=== PATIENT | female | born 1945 | race Caucasian/White ===

== ENCOUNTER 2018-03-23 00:32 | Inpatient (IN) ==
[2018-03-23] MEDS ORDERED: Ipratropium/Albuterol Neb 3 ML IH ONE (00:51)
[2018-03-23] MEDS ORDERED: methylPREDNISolone 125 MG/2 ML VIAL IVP ONE (00:52)
--- NOTE | 2018-03-23 00:59 | Emergency Department Note ---
Disposition Clinical Impression: COPD exacerbation Disposition: Admitted As Inpatient Condition: Good Time of Disposition: 05:03 SOB HPI - General Chief Complaint: ED Shortness of Breath/Dyspnea Stated Complaint: sob Time Seen by Provider: 03/23/18 00:37 Source: patient, EMS Limitations: no limitations Nursing Notes Reviewed: Yes Vital Signs Reviewed: Yes - History of Present Illness Patient is a 72-year-old female with past medical history of COPD. She presents today due to cough, shortness of breath. She states that she has had cough and shortness of breath above her baseline for the past 2-3 days. She was seen in urgent care this morning and had chest x-ray that she reports was negative for any pneumonia. She was sent home with prednisone and an inhaler. She states that she has been using her inhaler at home without any relief. She did not start her prednisone because she thought that it would work better if she taken the morning. She admits to productive cough above her baseline. She denies taking any daily steroid inhaler such as Symbicort or Advair. She admits to some mild chest discomfort when coughing mainly on the left side of her chest. Denies any radiation of this pain, describes as sharp. No other history of leg swelling, calf pain, long car rides, recent surgeries, any history of DVT or PE. She denies any fevers, nausea, vomiting, abdominal pain. She has not had to be on BIPAP in the past. - Related Data Home Medications Medication Instructions Recorded Confirmed Ascorbate Calcium [Vitamin C] 500 mg PO DAILY 03/23/18 03/23/18 Aspirin [Adult Aspirin] 81 mg PO DAILY 03/23/18 03/23/18 Benzonatate [Tessalon] 200 mg PO TID 03/23/18 03/23/18 Guaifenesin [Mucinex] 100 mg PO DAILY 03/23/18 03/23/18 Ipratropium/Albuterol Neb [Duoneb] 3 ml IH Q6HR 03/23/18 03/23/18 Loratadine [Claritin] 10 mg PO DAILY 03/23/18 03/23/18 Nebulizer [Aeroeclipse] 1 each MC PRN PRN MDD 4 03/23/18 03/23/18 Zithromax 250 mg PO DAILY 03/23/18 03/23/18 predniSONE [PredniSONE] 40 mg PO DAILY 03/23/18 03/23/18 Allergies Allergy/AdvReac Type Severity Reaction Status Date / Time ibuprofen Allergy Nausea Verified 03/23/18 01:26 All systems ED: reviewed and negative except as stated. Constitutional: Denies: fever Cardiovascular: Reports: chest pain Respiratory: Reports: cough, dyspnea, wheezes Gastrointestinal: Denies: abdominal pain, nausea, vomiting, diarrhea Genitourinary: Denies: urgency, dysuria Neurological: Denies: headache, weakness, numbness, paresthesias Past Medical History - Past Medical History Attestation: Yes The following information was validated with the patient. Source: patient Medical history: Reports: COPD, CVA Surgical history: Reports: OMAR/BSO - Social History Smoking Status: Current every day smoker Smokeless Tobacco Status: No Alcohol use: Reports: none Drug use: Reports: none Physical Exam - General Limitations: no limitations General appearance: alert - Head Head exam: atraumatic, normocephalic, normal inspection - Eye Eye exam: Present: normal appearance, PERRL, EOMI - ENT ENT exam: normal exam, normal oropharynx, mucous membranes moist - Neck Neck exam: Present: normal inspection, full ROM, trachea midline - Chest Chest inspection: Present: normal inspection, symmetric chest wall rise - Respiratory Respiratory exam: Present: respiratory distress (moderate), wheezes (moderate wheeze throughout all lung molina), accessory muscle use (moderate). Absent: stridor - Cardiovascular Cardiovascular exam: Present: regular rate, normal rhythm, normal heart sounds - Abdominal Exam Abdominal exam: Present: soft, Non-Tender. Absent: tenderness, distention, guarding, rebound, rigidity - Extremities Exam Extremities exam: Present: normal inspection, full ROM. Absent: tenderness, pedal edema - Neurological Exam Neurological exam: Present: alert, oriented X3 - Psychiatric Psychiatric exam: Present: normal affect, normal mood - Skin Skin exam: Present: warm, dry, intact, normal color Course Course Narrative: Patient was satting around 95-99% on 2-4 L nasal cannula. However, she had significant work of breathing. Patient is placed on BiPAP. Initial VBG showed pH of 7.39, CO2 in the 50s. O2 was high. She was given DuoNeb 3, Solu- Medrol. CTA was ordered to assess for PE due to patient's complaint of pleuritic type chest pain. Negative for PE but did show possible branching opacities that could be pneumonia. Patient was started on vancomycin and Zosyn. Throughout her stay, she does have improvement of her work of breathing while on BiPAP. Patient was accepted for admission by Dr. Morton. Chest CTA 03/23/18 00:51 IMPRESSION: 1. No evidence of pulmonary embolism 2. Moderate to severe centrilobular emphysema 3. Branching opacities in the left lung may reflect mild pneumonia or infectious airway disease 4. Small amount of filling defects within the small airways of left lower lobe. This could reflect mucus or debris. Aspiration is not excluded D/ / Alan Sam MD / Alan Sam MD Interpreting Provider: Alan Sam MD Vital Signs Temperature 98.3 F 03/23/18 00:35 Pulse Rate 116 03/23/18 00:35 Respiratory Rate 24 03/23/18 00:35 Blood Pressure 141/78 03/23/18 00:35 O2 Sat by Pulse Oximetry 100 03/23/18 00:35 Temperature 98.3 F 03/23/18 00:35 Pulse Rate 116 03/23/18 01:15 Respiratory Rate 22 03/23/18 02:05 Blood Pressure 95/59 03/23/18 02:05 O2 Sat by Pulse Oximetry 100 03/23/18 02:05 Oxygen Delivery Oxygen Delivery Nasal Cannula Shortness of Breath/Dyspnea - MDM Narrative Medical decision making narrative: Patient was satting around 95-99% on 2-4 L nasal cannula. However, she had significant work of breathing. Patient is placed on BiPAP. Initial VBG showed pH of 7.39, CO2 in the 50s. O2 was high. Trop negative. EKG showed no acute ST changes. She was given DuoNeb 3, Solu-Medrol. CTA was ordered to assess for PE due to patient's complaint of pleuritic type chest pain. Negative for PE but did show possible branching opacities that could be pneumonia. Patient was started on vancomycin and Zosyn. Throughout her stay, she does have improvement of her work of breathing while on BiPAP. Patient was accepted for admission by Dr. Morton. - Medical Records Medical records reviewed: Yes I reviewed the patient's medical records. - Lab Data Lab results reviewed: Yes I reviewed the patient's lab results. Result diagrams: 03/23/18 01:07 03/23/18 01:07 Lab Results 03/23/18 03/23/18 03/23/18 Range/Units 01:07 01:07 01:07 WBC 14.5 H (4.3-11.1) K/mcL RBC 3.94 (3.82-4.97) M/mcL Hgb 13.3 (11.5-15.4) g/dL Hct 38.3 (35.3-44.9) % MCV 97.2 (83.0-100.0) fL MCH 33.8 H (28.0-33.3) pg MCHC 34.7 (31.6-35.5) g/dL RDW 14.2 (11.5-14.5) % Plt Count 322 (140-400) K/mcL MPV 9.6 (9.4-12.4) fL Immature Gran % 0.4 (0-4) % Seg Neutrophils % 74.4 % Lymphocytes % 12.2 % Monocytes % 12.6 % Eosinophils % 0.1 % Basophils % 0.3 % Neutrophils # 10.8 H (1.6-8.9) K/mcL Lymphocytes # 1.8 (0.6-4.6) K/mcL Monocytes # 1.8 H (0.0-1.3) K/mcL Eosinophils # 0.0 (0.0-0.6) K/mcL Basophils # 0.1 (0.0-0.2) K/mcL VBG pH (7.32-7.42) pH Units VBG pCO2 (41-51) mmHg VBG pO2 (25-50) mmHg VBG HCO3 (21-27) mEq/L Sodium 140 (136-145) mEq/L Potassium 3.3 L (3.5-5.1) mEq/L Chloride 104 (98-107) mEq/L Carbon Dioxide 29 (23-29) mEq/L BUN 20 (8-23) mg/dL Creatinine 0.59 L (0.60-1.20) mg/dL Est GFR ( Amer) > 60 (> 60) Est GFR (Non-Af Amer) > 60 (> 60) BUN/Creatinine Ratio 34 H (6-26) Glucose 171 H (70-105) mg/dL Calculated Osmolality 297 (280-300) Lactic Acid 0.8 (0.5-2.2) mmol/L Calcium 9.7 (8.6-10.3) mg/dL Troponin I < 0.03 (< 0.04) ng/mL B-Natriuretic Peptide (Less than 100) pg/mL 03/23/18 03/23/18 03/23/18 Range/Units 01:07 01:23 03:57 WBC (4.3-11.1) K/mcL RBC (3.82-4.97) M/mcL Hgb (11.5-15.4) g/dL Hct (35.3-44.9) % MCV (83.0-100.0) fL MCH (28.0-33.3) pg MCHC (31.6-35.5) g/dL RDW (11.5-14.5) % Plt Count (140-400) K/mcL MPV (9.4-12.4) fL Immature Gran % (0-4) % Seg Neutrophils % % Lymphocytes % % Monocytes % % Eosinophils % % Basophils % % Neutrophils # (1.6-8.9) K/mcL Lymphocytes # (0.6-4.6) K/mcL Monocytes # (0.0-1.3) K/mcL Eosinophils # (0.0-0.6) K/mcL Basophils # (0.0-0.2) K/mcL VBG pH 7.39 (7.32-7.42) pH Units VBG pCO2 55 H (41-51) mmHg VBG pO2 75 H (25-50) mmHg VBG HCO3 33 H (21-27) mEq/L Sodium (136-145) mEq/L Potassium (3.5-5.1) mEq/L Chloride (98-107) mEq/L Carbon Dioxide (23-29) mEq/L BUN (8-23) mg/dL Creatinine (0.60-1.20) mg/dL Est GFR ( Amer) (> 60) Est GFR (Non-Af Amer) (> 60) BUN/Creatinine Ratio (6-26) Glucose (70-105) mg/dL Calculated Osmolality (280-300) Lactic Acid 0.8 (0.5-2.2) mmol/L Calcium (8.6-10.3) mg/dL Troponin I (< 0.04) ng/mL B-Natriuretic Peptide 122 H (Less than 100) pg/mL - Radiology Data Radiology results reviewed: Yes I reviewed the patient's radiology results. Chest CTA 03/23/18 00:51 IMPRESSION: 1. No evidence of pulmonary embolism 2. Moderate to severe centrilobular emphysema 3. Branching opacities in the left lung may reflect mild pneumonia or infectious airway disease 4. Small amount of filling defects within the small airways of left lower lobe. This could reflect mucus or debris. Aspiration is not excluded D/ / Alan Sam MD / Alan Sam MD Interpreting Provider: Alan Sam MD [email or web address] - S.MynorAMary Situation: Demographics, MOA Background: Presenting Complaint, Relevant PMH, Meds, & Allergies Assessment: Vital Signs, Course and respsone to treatment, Exam Concerns, Patient/Family Expectation, Pertinant Lab Results Recommendation: Barrier(s) to disposition, Recommendation based on pending studies, treatments, or consults S.B.A.R. Report Given to: Dr. Morton Attestation Statement - Attestation Attestation: I examined this patient and my medical decision-making was reviewed with the Resident Physician. I agree with the documented findings, disposition and treatment plan as described except to the extent set forth below. COPD exacerbation, placed on BiPAP, antibiotics, steroids, bronchodilators, admission for further management. I spent greater than 35 minutes of critical care time resuscitating this acutely ill patient suffering from COPD exacerbation. This was excluding billable procedures.
[2018-03-23 01:24] LABS: Basophils # 0.1 K/mcL (0.0-0.2); Basophils % 0.3 %; Eosinophils % 0.1 %; Hematocrit 38.3 % (35.3-44.9); Hemoglobin 13.3 g/dL (11.5-15.4); Immature Granulocytes % 0.4 % (0-4); Lymphocytes # 1.8 K/mcL (0.6-4.6); Lymphocytes % 12.2 %; Mean Corpuscular HGB Conc 34.7 g/dL (31.6-35.5); Mean Corpuscular Hemoglobin 33.8 pg (28.0-33.3); Mean Corpuscular Volume 97.2 fL (83.0-100.0); Mean Platelet Volume 9.6 fL (9.4-12.4); Monocytes # 1.8 K/mcL (0.0-1.3); Monocytes % 12.6 %; Neutrophils # 10.8 K/mcL (1.6-8.9); Platelet Count 322 K/mcL (140-400); Red Blood Count 3.94 M/mcL (3.82-4.97); Red Cell Distribution Width 14.2 % (11.5-14.5); Segmented Neutrophils % 74.4 %
[2018-03-23 01:28] LABS: VBG HCO3 33 mEq/L (21-27); VBG PCO2 55 mmHg (41-51); VBG PH 7.39 pH Units (7.32-7.42); VBG PO2 75 mmHg (25-50)
[2018-03-23 01:45] LABS: BUN/Creatinine Ratio 34 (6-26); Blood Urea Nitrogen 20 mg/dL (8-23); Calcium 9.7 mg/dL (8.6-10.3); Carbon Dioxide 29 mEq/L (23-29); Chloride 104 mEq/L (98-107); Glucose 171 mg/dL (70-105); Osmolality,Calculated 297 (280-300); Potassium 3.3 mEq/L (3.5-5.1); Sodium 140 mEq/L (136-145); eGFR For African Americans > 60 (> 60); eGFR For Non-African Americans > 60 (> 60)
[2018-03-23 01:46] LABS: Troponin I < 0.03 ng/mL (< 0.04)
[2018-03-23] MEDS ORDERED: Piperacillin/Tazobactam 3.375 GM in 0.9 % Sodium Chloride Mini Bag 100 ML IVPB ONE (03:49)
[2018-03-23] MEDS ORDERED: Vancomycin 500 MG in 0.9 % Sodium Chloride 250 ML IVPB ONE (03:49)
[2018-03-23] MEDS ORDERED: Ondansetron 4 MG/2 ML VIAL IVP PRN (04:23)
[2018-03-23] MEDS ORDERED: Acetaminophen 325 MG TABLET PO PRN (04:27)
[2018-03-23] MEDS ORDERED: Naloxone 0.4 MG/ML INJ IVP PRN (04:27)
[2018-03-23] MEDS ORDERED: 0.9 % Sodium Chloride 1,000 ML IVC SCH (04:30)
--- NOTE | 2018-03-23 05:08 | Internal Med History&Physical ---
Date of Encounter: 03/23/18 Time of Encounter: 04:54 Internal Medicine - H&P: HPI Chief complaint: Shortness of breath Admitted From: Emergency Dept Plans for Post Hospital Care: Home History of present illness: Ms. Nichole is a 72 year old female history of COPD on 2 L nasal cannula at night and intermittently throughout the day who presents with 2 days complaints of shortness of breath that has not improved. She also reports increased coughing frequency. Non productive. Denies fever/chills. Has been wheezing. Went to urgent care yesterday morning and was put on oral steroids and azithromax. Only took azithromax but not the steroids. Respiratory status worsen throughout the day and she decided to come into the ED where she was in significant respiratory distress was put on BiPAP. She was tachycardic as well. Lowest O2 saturation was in the low 90s in the ED. She underwent a workup in the ED that showed elevated white count. Potassium was 3.3. CT of chest was done which showed left lung pneumonia with findings of swelling defects concerning for possible mucus or debris causing aspiration pneumonia. The patient was given nebulizers, IV Solu-Medrol, IV vancomycin and Zosyn. She reports left-sided chest pain with no radiation whenever she coughs. EKG was sinus tachycardia with no acute ischemic changes. Troponins were less than 0.03. Denies any headache, blurry vision, nausea, vomiting, abdominal pain, diarrhea, constipation, urinary symptoms, or neurological symptoms. Past Med Surg Social Fam HX - Past Medical History Medical history: COPD, CVA - Past Surgical History Surgical History: OMAR/BSO - Social History Smoking Status: Current every day smoker Smokeless Tobacco Status: No Alcohol use: none Drug use: none Internal Medicine - H&P: Meds Ascorbate Calcium [Vitamin C] 500 mg PO DAILY 03/23/18 [History] Aspirin [Adult Aspirin] 81 mg PO DAILY 03/23/18 [History] Benzonatate [Tessalon] 200 mg PO TID 03/23/18 [History] Guaifenesin [Mucinex] 100 mg PO DAILY 03/23/18 [History] Ipratropium/Albuterol Neb [Duoneb] 3 ml IH Q6HR 03/23/18 [History] Loratadine [Claritin] 10 mg PO DAILY 03/23/18 [History] Nebulizer [Aeroeclipse] 1 each MC PRN PRN MDD 4 03/23/18 [History] Zithromax 250 mg PO DAILY 03/23/18 [History] predniSONE [PredniSONE] 40 mg PO DAILY 03/23/18 [History] 3 Allergy/AdvReac Type Severity Reaction Status Date / Time ibuprofen Allergy Nausea Verified 03/23/18 01:26 All Systems PM: A 10-system review of systems was performed and is negative for pertinent findings except as documented above in the HPI. Review of systems: All systems reviewed are negative except as mentioned above - Constitutional Vitals: Temp Pulse Resp BP Pulse Ox 98.3 F 116 22 95/59 100 03/23/18 00:35 03/23/18 01:15 03/23/18 02:05 03/23/18 02:05 03/23/18 02:05 Exam: GEN: On BiPAP, cachectic HEENT: AT, NC, No cyanosis, oral mucosa is moist, No JVD Lymphatics: No lymphadenoapthy Eyes: Extrocular muscles intact, anicteric CVS:RRR. S1, S2, No m/r/g RESP: Diffuse inspiratory and expiratory wheezes. Diminished at the bases with coarse breath sounds. ABD: Soft, NT, ND, +BS EXT: No edema, No rashes, 2+ DP NEURO: Nonfocal, CN II-XII intact, No focal motor or sensory deficits Psych: Cooperative, Not anxious or depressed Internal Med - H&P Results - Labs CBC & Chem 7: 03/23/18 01:07 03/23/18 01:07 Labs: Short CBC 03/23/18 Range/Units 01:07 WBC 14.5 H (4.3-11.1) K/mcL Hgb 13.3 (11.5-15.4) g/dL Hct 38.3 (35.3-44.9) % Plt Count 322 (140-400) K/mcL Neutrophils # 10.8 H (1.6-8.9) K/mcL BMP 03/23/18 01:07 Sodium 140 Potassium 3.3 L Chloride 104 Carbon Dioxide 29 BUN 20 Creatinine 0.59 L Glucose 171 H Calcium 9.7 Cardiac Enzymes 03/23/18 Range/Units 01:07 Troponin I < 0.03 (< 0.04) ng/mL - ABG Interpretation ABG results: 03/23/18 01:23 VBG pH 7.39 VBG pCO2 55 H VBG pO2 75 H VBG HCO3 33 H - Impressions ITS Impressions Chest CTA 03/23/18 00:51 IMPRESSION: 1. No evidence of pulmonary embolism 2. Moderate to severe centrilobular emphysema 3. Branching opacities in the left lung may reflect mild pneumonia or infectious airway disease 4. Small amount of filling defects within the small airways of left lower lobe. This could reflect mucus or debris. Aspiration is not excluded D/ / Alan Sam MD / Alan Sam MD Interpreting Provider: Alan Sam MD - Assessment and plan (1) Acute and chronic respiratory failure with hypoxia Current Visit: Yes Status: Acute Assessment and plan: Likely secondary to an exacerbation of COPD secondary to pneumonia. O2 support and try to wean off BiPAP as tolerated. Treat underlying causes as below. (2) Aspiration pneumonia Current Visit: Yes Status: Acute Assessment and plan: Possibly aspiration pneumonia versus community acquired pneumonia. We will place the patient on Unasyn for aspiration coverage as well as Zithromax. Check sputum culture if able to give a sample. Check urine strep and Legionella. Speech evaluation. Nebs. O2 support. Qualifiers: Aspiration pneumonia type: unspecified Laterality: left Lung location: unspecified part of lung Qualified Code(s): J69.0 - Pneumonitis due to inhalation of food and vomit (3) Acute exacerbation of chronic obstructive pulmonary disease (COPD) Current Visit: No Status: Acute Assessment and plan: We will place the patient on IV Solu-Medrol every 8 hours. Nebulizers. Wean O2 as tolerated. (4) Hypokalemia Current Visit: Yes Status: Acute Assessment and plan: We will give IV potassium. (5) DVT prophylaxis Current Visit: Yes Status: Acute Assessment and plan: Heparin subcutaneous - Time Spent With Patient Total time spent is greater than 50% in coordination of care (as documented) at patient's floor/unit and/or counseling patient:
[2018-03-23] MEDS ORDERED: Potassium Chloride 40 MEQ, Lidocaine 1% 2 ML in D5% in Water 500 ML IVPB ONE (05:30)
[2018-03-23] MEDS: Azithromycin 500 MG in D5% in Water 250 ML IVPB SCH (06:30)
[2018-03-23] MEDS: Ampicillin/Sulbactam 3,000 MG in 0.9 % Sodium Chloride Mini Bag 100 ML IVPB SCH ×3 (06:31→17:58)
[2018-03-23] MEDS: *HR* Heparin 5,000 UNIT/ML VIAL SQ SCH ×3 (06:40→21:27)
[2018-03-23 06:53] LABS: VBG HCO3 30 mEq/L (21-27); VBG PCO2 44 mmHg (41-51); VBG PH 7.45 pH Units (7.32-7.42); VBG PO2 153 mmHg (25-50)
[2018-03-23] MEDS: Ascorbic Acid 500 MG TABLET PO SCH (08:29)
[2018-03-23] MEDS: methylPREDNISolone 125 MG/2 ML VIAL IVP SCH ×2 (08:29→16:08)
[2018-03-23] MEDS: Loratadine 10 MG TABLET PO SCH (08:29)
[2018-03-23] MEDS: Benzonatate 100 MG CAPSULE PO SCH ×2 (08:29→14:49)
[2018-03-23] MEDS: Aspirin Enteric Coated 81 MG Tablet PO SCH (08:30)
[2018-03-23] MEDS ORDERED: GuaiFENesin Liq 200 MG/10 ML UDC PO SCH (09:00)
[2018-03-23] MEDS: Ipratropium/Albuterol Neb 3 ML IH SCH ×3 (10:38→21:58)
--- NOTE | 2018-03-23 12:20 | Internal Med Progress Note ---
<Musa Barton - Last Filed: 03/23/18 12:18> Date of Encounter: 03/23/18 Time of Encounter: 12:18 - Assessment and plan (1) Acute and chronic respiratory failure with hypoxia Current Visit: Yes Status: Acute Assessment and plan: 2nd to pna and copd exacerbation continue supplemental O2 duonebs (2) Acute exacerbation of chronic obstructive pulmonary disease (COPD) Current Visit: Yes Status: Acute Assessment and plan: increased cough, sputum production, and O2 requirement continue antibioitcs and steroids, dubonebs. (3) Aspiration pneumonia Current Visit: Yes Status: Suspected Assessment and plan: CTA: negative for PE, Left lung pna. on unaysn and zithromax. urine strep and legionella negative blood cultures pending. Qualifiers: Aspiration pneumonia type: unspecified Laterality: left Lung location: unspecified part of lung Qualified Code(s): J69.0 - Pneumonitis due to inhalation of food and vomit (4) DVT prophylaxis Current Visit: Yes Status: Acute Assessment and plan: Heparin subcutaneous (5) Hypokalemia Current Visit: Yes Status: Acute Assessment and plan: replacing - Time Spent With Patient Total time spent is greater than 50% in coordination of care (as documented) at patient's floor/unit and/or counseling patient: - Subjective Interval history: Patient reports her breathing has improved since being admitted. She reports cough, productive sputum. She denies headache, chest pain, abdominal pain. Patient uses 3 L oxygen at home. Patient has been smoking since age 16. Currently she smokes 2 cigarettes a day. She denies any weight loss. - Constitutional Vitals: Temp Pulse Resp BP Pulse Ox 97.8 F 94 14 95/81 100 03/23/18 11:43 03/23/18 11:43 03/23/18 11:43 03/23/18 11:43 03/23/18 11:43 - Other Additional findings: General: without distress Heart: Regular rate and rhythm with no murmur Lungs: Bilateral wheezing, OSBALDO ronchi Abdomen: Soft nontender, nondistended positive bowel sounds Skin: warm and dry, absent rash Extremities: Absent pedal edema, Neuro: alert oriented x3. Vascular: Pedal and radial pulses 2 out of 4 Internal Medicine: Result - Labs CBC & Chem 7: 03/23/18 01:07 03/23/18 01:07 Consult Discharge Plan - Plan Referrals: Radha Sue CNP [Primary Care Provider] - <Puneet Molina - Last Filed: 03/23/18 14:16> Date of Encounter: 03/23/18 - Assessment and plan (1) Acute and chronic respiratory failure with hypoxia Current Visit: Yes Status: Acute (2) Acute exacerbation of chronic obstructive pulmonary disease (COPD) Current Visit: Yes Status: Acute (3) Aspiration pneumonia Current Visit: Yes Status: Suspected Qualifiers: Aspiration pneumonia type: unspecified Laterality: left Lung location: unspecified part of lung Qualified Code(s): J69.0 - Pneumonitis due to inhalation of food and vomit (4) DVT prophylaxis Current Visit: Yes Status: Acute (5) Hypokalemia Current Visit: Yes Status: Acute - Time Spent With Patient Total time spent is greater than 50% in coordination of care (as documented) at patient's floor/unit and/or counseling patient: - Constitutional Vitals: Temp Pulse Resp BP Pulse Ox 97.8 F 94 14 95/81 100 03/23/18 11:43 03/23/18 11:43 03/23/18 11:43 03/23/18 11:43 03/23/18 11:43 Internal Medicine: Result - Labs CBC & Chem 7: 03/23/18 01:07 03/23/18 01:07 - Attending Attestation I examined this patient and my medical decision-making was reviewed with the Resident Physician on 03/23/18. I agree with the documented findings, disposition and treatment plan as described except to the extent set forth below. Ms Nichole was admitted early this AM for pneumonia and resp failure. Ms Nichole is feeling somewhat better. Her breathing is beginning to improved. No fever. Exam alert Comfortable Heart reg Diffuse end exp wheeze Abd soft I/P 1. Resp failure 2. PNA 3. COPD Further diagnoses and plan as above
[2018-03-23] MEDS ORDERED: Benzonatate 100 MG CAPSULE PO PRN (16:14)
[2018-03-23] MEDS ORDERED: GuaiFENesin Liq 200 MG/10 ML UDC PO PRN (16:15)
[2018-03-23] MEDS ORDERED: *HR* LORazepam 0.5 MG TABLET PO ONE (22:30)
[2018-03-24] MEDS: methylPREDNISolone 125 MG/2 ML VIAL IVP SCH ×2 (01:26→10:23)
[2018-03-24] MEDS: Ampicillin/Sulbactam 3,000 MG in 0.9 % Sodium Chloride Mini Bag 100 ML IVPB SCH ×4 (01:26→17:27)
[2018-03-24] MEDS: Ipratropium/Albuterol Neb 3 ML IH SCH ×4 (04:00→22:03)
[2018-03-24 05:04] LABS: Basophils % 0.2 %; Hematocrit 33.8 % (35.3-44.9); Immature Granulocytes % 0.5 % (0-4); Lymphocytes # 0.7 K/mcL (0.6-4.6); Lymphocytes % 5.8 %; Mean Corpuscular HGB Conc 32.5 g/dL (31.6-35.5); Mean Corpuscular Hemoglobin 31.7 pg (28.0-33.3); Mean Corpuscular Volume 97.4 fL (83.0-100.0); Mean Platelet Volume 9.9 fL (9.4-12.4); Monocytes # 0.7 K/mcL (0.0-1.3); Platelet Count 302 K/mcL (140-400); Red Blood Count 3.47 M/mcL (3.82-4.97); Red Cell Distribution Width 14.4 % (11.5-14.5); Segmented Neutrophils % 87.5 %
[2018-03-24 05:21] LABS: BUN/Creatinine Ratio 30 (6-26); Blood Urea Nitrogen 22 mg/dL (8-23); Calcium 9.2 mg/dL (8.6-10.3); Carbon Dioxide 26 mEq/L (23-29); Chloride 109 mEq/L (98-107); Glucose 159 mg/dL (70-105); Osmolality,Calculated 299 (280-300); Potassium 4.1 mEq/L (3.5-5.1); Sodium 141 mEq/L (136-145); eGFR For African Americans > 60 (> 60); eGFR For Non-African Americans > 60 (> 60)
[2018-03-24] MEDS: Azithromycin 500 MG in D5% in Water 250 ML IVPB SCH (05:42)
[2018-03-24] MEDS: *HR* Heparin 5,000 UNIT/ML VIAL SQ SCH ×3 (05:47→21:08)
[2018-03-24] MEDS: Loratadine 10 MG TABLET PO SCH (10:22)
[2018-03-24] MEDS: Ascorbic Acid 500 MG TABLET PO SCH (10:22)
[2018-03-24] MEDS: Aspirin Enteric Coated 81 MG Tablet PO SCH (10:22)
--- NOTE | 2018-03-24 10:45 | Internal Med Progress Note ---
<George Cole - Last Filed: 03/24/18 15:31> Date of Encounter: 03/24/18 Time of Encounter: 09:45 - Assessment and plan (1) Acute exacerbation of chronic obstructive pulmonary disease (COPD) Current Visit: Yes Status: Acute Assessment and plan: increased cough, sputum production, and O2 requirement We will stop Azithromycin today, continue Unasyn Day 3 Transition to PO Prednisone (2) Acute and chronic respiratory failure with hypoxia Current Visit: Yes Status: Acute Assessment and plan: 2nd to pna and copd exacerbation continue supplemental O2 duonebs (3) Aspiration pneumonia Current Visit: Yes Status: Suspected Assessment and plan: CTA: negative for PE, Left lung pna. Stop Azithromycin, Continue Unasyn urine strep and legionella negative blood cultures negative thus far Qualifiers: Aspiration pneumonia type: unspecified Laterality: left Lung location: unspecified part of lung Qualified Code(s): J69.0 - Pneumonitis due to inhalation of food and vomit (4) DVT prophylaxis Current Visit: Yes Status: Acute Assessment and plan: Heparin subcutaneous (5) Hypokalemia Current Visit: Yes Status: Acute Assessment and plan: replacing - Time Spent With Patient Total time spent is greater than 50% in coordination of care (as documented) at patient's floor/unit and/or counseling patient: - Subjective Interval history: The patient is seen and examined at bedside. She is feeling substantially better than she did previously. No obvious changes throughout the night. - Constitutional Vitals: Temp Pulse Resp BP Pulse Ox 97.9 F 102 16 131/72 100 03/24/18 06:45 03/24/18 06:45 03/24/18 06:45 03/24/18 06:45 03/24/18 06:45 Exam: General: without distress, appears well Heart: Regular rate and rhythm with no murmur Lungs: B/L diminished, no obvious wheezes, some rales in the bases Abdomen: Soft nontender, nondistended positive bowel sounds Skin: warm and dry, absent rash Extremities: Absent pedal edema, digital clubbing pending Neuro: alert oriented x3. Vascular: Pedal and radial pulses 2 out of 4 Internal Medicine: Result - Labs CBC & Chem 7: 03/24/18 04:23 03/24/18 04:23 Labs: Short CBC 03/24/18 Range/Units 04:23 WBC 11.4 H (4.3-11.1) K/mcL Hgb 11.0 L D (11.5-15.4) g/dL Hct 33.8 L (35.3-44.9) % Plt Count 302 (140-400) K/mcL Neutrophils # 10.0 H (1.6-8.9) K/mcL BMP 03/24/18 04:23 Sodium 141 Potassium 4.1 Chloride 109 H Carbon Dioxide 26 BUN 22 Creatinine 0.73 Glucose 159 H Calcium 9.2 Consult Discharge Plan - Plan Referrals: Radha Sue CNP [Primary Care Provider] - 04/01/18 1:00 pm <Puneet Molina - Last Filed: 03/24/18 18:42> Date of Encounter: 03/24/18 - Assessment and plan (1) Acute and chronic respiratory failure with hypoxia Current Visit: Yes Status: Acute (2) Acute exacerbation of chronic obstructive pulmonary disease (COPD) Current Visit: Yes Status: Acute (3) Aspiration pneumonia Current Visit: Yes Status: Suspected Qualifiers: Aspiration pneumonia type: unspecified Laterality: left Lung location: unspecified part of lung Qualified Code(s): J69.0 - Pneumonitis due to inhalation of food and vomit (4) DVT prophylaxis Current Visit: Yes Status: Acute (5) Hypokalemia Current Visit: Yes Status: Acute (6) Tobacco abuse Current Visit: Yes Status: Chronic - Time Spent With Patient Total time spent is greater than 50% in coordination of care (as documented) at patient's floor/unit and/or counseling patient: - Constitutional Vitals: Temp Pulse Resp BP Pulse Ox 97.8 F 115 16 144/82 98 03/24/18 14:49 03/24/18 14:49 03/24/18 16:00 03/24/18 14:49 03/24/18 16:00 Internal Medicine: Result - Labs CBC & Chem 7: 03/24/18 04:23 03/24/18 04:23 Labs: Short CBC 03/24/18 Range/Units 04:23 WBC 11.4 H (4.3-11.1) K/mcL Hgb 11.0 L D (11.5-15.4) g/dL Hct 33.8 L (35.3-44.9) % Plt Count 302 (140-400) K/mcL Neutrophils # 10.0 H (1.6-8.9) K/mcL BMP 03/24/18 04:23 Sodium 141 Potassium 4.1 Chloride 109 H Carbon Dioxide 26 BUN 22 Creatinine 0.73 Glucose 159 H Calcium 9.2 - Attending Attestation I examined this patient and my medical decision-making was reviewed with the Resident Physician on 03/24/18. I agree with the documented findings, disposition and treatment plan as described except to the extent set forth below. Ms Nichole is currently admitted for acute exac COPD and resp failure. She remains moderate to high risk due to potential for worsening clinical and respiratory status. Ms Nichole is doing OK. She is slowly improving. No fever or chills. Less dyspnea. No GI issues. Exam Alert Comfortable Mucus membranes dry Heart distant Wheeze present Abd soft I/P 1. Resp failure 2. COPD Further diagnoses and plan as above.
[2018-03-24] MEDS ORDERED: 0.9 % Sodium Chloride 500 ML ONE (10:55)
--- NOTE | 2018-03-24 14:36 | Electrocardiograph Report ---
[place] [id number] Test Date: 2018-03-23 Pat Name: Alis Nichole Department: 103 Room: 2NE23 Gender: F Field Checker: ALVARADO : 1945 Requested By: oKby Jones Order Number: [id number] Reading MD: Margy Romero Measurements Intervals [place] Rate: 117 P: 85 TN: 108 QRS: 79 QRSD: 89 T: 70 QT: 329 QTc: 398 Interpretive Statements SINUS TACHYCARDIA WITH SHORT TN INTERVAL POSSIBLE LEFT ATRIAL ENLARGEMENT [-0.1mV P WAVE IN V1/V2] ABNORMAL RHYTHM ECG Electronically Signed On 03-24-2018 14:34:24 EDT by Margy Romero
[2018-03-24] MEDS ORDERED: 0.9 % Sodium Chloride 500 ML IVC ONE (16:13)
[2018-03-24] MEDS: Menthol 9.1 MG LOZENGE PO PRN (17:26)
[2018-03-25] MEDS: Ampicillin/Sulbactam 3,000 MG in 0.9 % Sodium Chloride Mini Bag 100 ML IVPB SCH ×5 (00:26→23:08)
[2018-03-25] MEDS: Ipratropium/Albuterol Neb 3 ML IH SCH ×4 (04:19→21:48)
[2018-03-25] MEDS: *HR* Heparin 5,000 UNIT/ML VIAL SQ SCH ×3 (06:03→23:08)
[2018-03-25 06:17] LABS: Basophils % 0.3 %; Hematocrit 33.5 % (35.3-44.9); Hemoglobin 11.2 g/dL (11.5-15.4); Immature Granulocytes % 2.6 % (0-4); Lymphocytes # 1.8 K/mcL (0.6-4.6); Lymphocytes % 13.9 %; Mean Corpuscular HGB Conc 33.4 g/dL (31.6-35.5); Mean Corpuscular Volume 98.8 fL (83.0-100.0); Mean Platelet Volume 10.1 fL (9.4-12.4); Monocytes # 1.3 K/mcL (0.0-1.3); Neutrophils # 9.5 K/mcL (1.6-8.9); Platelet Count 338 K/mcL (140-400); Red Blood Count 3.39 M/mcL (3.82-4.97); Red Cell Distribution Width 14.4 % (11.5-14.5); Segmented Neutrophils % 73.2 %
[2018-03-25 06:35] LABS: BUN/Creatinine Ratio 38 (6-26); Blood Urea Nitrogen 22 mg/dL (8-23); Carbon Dioxide 29 mEq/L (23-29); Chloride 107 mEq/L (98-107); Glucose 93 mg/dL (70-105); Osmolality,Calculated 297 (280-300); Potassium 3.8 mEq/L (3.5-5.1); Sodium 142 mEq/L (136-145); eGFR For African Americans > 60 (> 60); eGFR For Non-African Americans > 60 (> 60)
--- NOTE | 2018-03-25 07:54 | Discharge Summary ---
Date of Encounter: 03/25/18 Time of Encounter: 07:52 - Discharge Diagnosis (1) Acute exacerbation of chronic obstructive pulmonary disease (COPD) Priority: Primary Status: Acute Assessment and Plan: increased cough, sputum production, and O2 requirement Continue course of PO Prednisone Discharge home on Augmentin (2) Acute and chronic respiratory failure with hypoxia Priority: Secondary Status: Chronic Assessment and Plan: 2nd to pna and copd exacerbation continue supplemental O2 duonebs, home meds (3) Aspiration pneumonia Status: Suspected Assessment and Plan: CTA: negative for PE, Left lung pna. urine strep and legionella negative blood cultures negative thus far Transition to PO Augmentin for discharge, 7 day course Qualifiers: Aspiration pneumonia type: unspecified Laterality: left Lung location: unspecified part of lung Qualified Code(s): J69.0 - Pneumonitis due to inhalation of food and vomit (4) Hypokalemia Priority: Secondary Status: Resolved (5) Tobacco abuse Priority: Secondary Status: Chronic Hospital course: Ms. Nichole is a 72 year old female with history of COPD and CHF who was admitted for hypoxic respiratory failure secondary to exacerbation of COPD and likely aspiration pneumonia. She had acute dyspnea prior to presentation that started the day of admission, and became worse over time. She'd initially presented to an urgent care, where she was given antibiotics and steroids however she decided only to take the antibiotic and not the steroid. As she continued to worse, she determined that she would need to go to the hospital. In the ED she was found to be hypoxic and in respiratory distress, and she was also found to be tachycardic. At that time she was started on steroids, antibiotics and breathing treatments, and she had a CTA of the chest which was negative for PE but did demonstrate infiltrates consistent with aspiration pneumonia. She was maintained on antibiotics and steroids and continued to improve. She is now stable for discharge to home with oral antibiotic and steroid course. For more detailed hospital course, including plan at time of discharge, please see individual assessments. Discharge discussed with: patient, family, nurse, case management, specialty sales consultant - Time Spent with Patient Total time spent providing and/or coordinating discharge services: - Discharge Medications Home Medications: Acetaminophen [Extra Strength Non-Aspirin] 500 mg PO DAILY 03/23/18 [History] Albuterol Sulfate [Ventolin Hfa] 2 puff IH Q6H PRN 03/23/18 [History] Aspirin [Adult Aspirin] 81 mg PO DAILY 03/23/18 [History] Mv,Fe,Min/Lutein [A Thru Z [employer] Tablet] 1 tab PO DAILY 03/23/18 [ History] Allergies/Adverse Reactions: 3 Allergy/AdvReac Type Severity Reaction Status Date / Time ibuprofen Allergy Nausea Verified 03/23/18 01:26 Date of admission: 03/23/18 04:51 Primary care physician: Radha Sue CNP Discharging clinician: George Cole Anticipated date of discharge: 03/25/18 - Constitutional Vitals: Temp Pulse Resp BP Pulse Ox 97.7 F 87 16 126/69 100 03/25/18 07:38 03/25/18 07:38 03/25/18 07:38 03/25/18 07:38 03/25/18 07:38 - Patient Status Disposition: Home, Self-Care Condition: Good Functional capacity at discharge: independent ambulation Overall status at discharge: patient is back to baseline - Discharge Instructions Follow Up With: Radha Sue CNP [Primary Care Provider] - 04/01/18 1:00 pm - Diet and Activity Activity: increase activity as tolerated, wear oxygen at all times Diet: regular diet
[2018-03-25] MEDS ORDERED: predniSONE 20 MG TABLET PO SCH (09:00)
[2018-03-25] MEDS ORDERED: *HR* LORazepam 0.5 MG TABLET PO ONE (09:44)
[2018-03-25] MEDS ORDERED: 0.9 % Sodium Chloride 500 ML ONE (09:46)
[2018-03-25] MEDS: Loratadine 10 MG TABLET PO SCH (09:54)
[2018-03-25] MEDS: Aspirin Enteric Coated 81 MG Tablet PO SCH (09:54)
[2018-03-25] MEDS: Ascorbic Acid 500 MG TABLET PO SCH (09:54)
[2018-03-25] MEDS: Azithromycin 500 MG in D5% in Water 250 ML IVPB SCH (09:55)
[2018-03-25] MEDS: Menthol 9.1 MG LOZENGE PO PRN (10:02)
--- NOTE | 2018-03-25 10:46 | Internal Med Progress Note ---
<George Cole - Last Filed: 03/25/18 10:42> Date of Encounter: 03/25/18 Time of Encounter: 09:00 - Assessment and plan (1) Acute exacerbation of chronic obstructive pulmonary disease (COPD) Current Visit: Yes Status: Acute Assessment and plan: increased cough, sputum production, and O2 requirement Patient is feeling significantly worse than previous We will continue Unasyn, restart azithromycin Transitioned back to IV steroids (2) Acute and chronic respiratory failure with hypoxia Current Visit: Yes Status: Chronic Assessment and plan: 2nd to pna and copd exacerbation continue supplemental O2 duonebs, home meds (3) Aspiration pneumonia Current Visit: Yes Status: Suspected Assessment and plan: CTA: negative for PE, Left lung pna. urine strep and legionella negative blood cultures negative thus far Concern for worsening symptoms Continue unasyn Day 4 Restart Azithromycin today Qualifiers: Aspiration pneumonia type: unspecified Laterality: left Lung location: unspecified part of lung Qualified Code(s): J69.0 - Pneumonitis due to inhalation of food and vomit (4) Hypokalemia Current Visit: Yes Status: Resolved Assessment and plan: replacing (5) DVT prophylaxis Current Visit: Yes Status: Acute Assessment and plan: Heparin subcutaneous (6) Tobacco abuse Current Visit: Yes Status: Chronic Assessment and plan: Nicotine patches as needed - Time Spent With Patient Total time spent is greater than 50% in coordination of care (as documented) at patient's floor/unit and/or counseling patient: Greater than 35 minutes - Subjective Interval history: The patient is seen and examined at bedside. She is coughing substantially more than she was yesterday, and she said she feels more short of breath than she was. She is concerned that she is getting worse. Additionally, the patient is extremely anxious this morning. - Constitutional Vitals: Temp Pulse Resp BP Pulse Ox 97.7 F 87 18 126/69 100 03/25/18 07:38 03/25/18 07:38 03/25/18 09:21 03/25/18 07:38 03/25/18 09:21 Exam: Gen: Vitals noted. Very mild distress with significant anxiety HEENT: oropharynx clear, Normocephalic, atraumatic Neck: Supple. No adenopathy. Cardiac: RRR, no murmur, +S1/S2 Pulmonary: Significant wheezes throughout as well as rhonchi bilaterally particularly in the bases Abdomen: soft, nontender, no guarding Back: Nontender throughout. MSK: ROM intact, no joint swelling noted Extremities: no BLE edema, nontender calf, no cyanosis or clubbing Neuro: moves all extremities, no focal deficits Psych: Highly anxious today Internal Medicine: Result - Labs CBC & Chem 7: 03/25/18 05:09 03/25/18 05:09 Labs: Short CBC 03/25/18 Range/Units 05:09 WBC 12.9 H (4.3-11.1) K/mcL Hgb 11.2 L (11.5-15.4) g/dL Hct 33.5 L (35.3-44.9) % Plt Count 338 (140-400) K/mcL Neutrophils # 9.5 H (1.6-8.9) K/mcL BMP 03/25/18 05:09 Sodium 142 Potassium 3.8 Chloride 107 Carbon Dioxide 29 BUN 22 Creatinine 0.58 L Glucose 93 Calcium 9.0 Consult Discharge Plan - Plan Instructions: Acute Respiratory Distress Syndrome (DC), Using Oxygen at Home ( DC), Chronic Obstructive Pulmonary Disease (DC), Cigarette Smoking and Your Health, Communication Spec (GEN) Referrals: Radha Sue CNP [Primary Care Provider] - 04/01/18 1:00 pm <Jcarlos Bowie - Last Filed: 03/25/18 13:41> Date of Encounter: 03/25/18 - Assessment and plan (1) Acute exacerbation of chronic obstructive pulmonary disease (COPD) Current Visit: Yes Status: Acute (2) Acute and chronic respiratory failure with hypoxia Current Visit: Yes Status: Chronic (3) Aspiration pneumonia Current Visit: Yes Status: Suspected Qualifiers: Aspiration pneumonia type: unspecified Laterality: left Lung location: unspecified part of lung Qualified Code(s): J69.0 - Pneumonitis due to inhalation of food and vomit (4) DVT prophylaxis Current Visit: Yes Status: Acute (5) Hypokalemia Current Visit: Yes Status: Resolved (6) Tobacco abuse Current Visit: Yes Status: Chronic - Time Spent With Patient Total time spent is greater than 50% in coordination of care (as documented) at patient's floor/unit and/or counseling patient: - Constitutional Vitals: Temp Pulse Resp BP Pulse Ox 98.3 F 110 16 127/74 96 03/25/18 11:51 03/25/18 11:51 03/25/18 11:51 03/25/18 11:51 03/25/18 11:51 Internal Medicine: Result - Labs CBC & Chem 7: 03/25/18 05:09 03/25/18 05:09 Labs: Short CBC 03/25/18 Range/Units 05:09 WBC 12.9 H (4.3-11.1) K/mcL Hgb 11.2 L (11.5-15.4) g/dL Hct 33.5 L (35.3-44.9) % Plt Count 338 (140-400) K/mcL Neutrophils # 9.5 H (1.6-8.9) K/mcL BMP 03/25/18 05:09 Sodium 142 Potassium 3.8 Chloride 107 Carbon Dioxide 29 BUN 22 Creatinine 0.58 L Glucose 93 Calcium 9.0 - Attending Attestation Acute on chronic hypoxic respiratory failure secondary to acute COPD exacerbation due to aspiration pneumonia present upon admission Continue Unasyn D3 Solu-Medrol I examined this patient and my medical decision-making was reviewed with the Resident Physician. I agree with the documented findings, disposition and treatment plan as described except to the extent set forth below.
[2018-03-25] MEDS ORDERED: *HR* LORazepam 0.5 MG TABLET PO PRN (15:26)
[2018-03-25] MEDS: methylPREDNISolone 125 MG/2 ML VIAL IVP SCH ×2 (17:06→23:09)
[2018-03-26] MEDS: Ipratropium/Albuterol Neb 3 ML IH SCH ×4 (03:27→22:28)
[2018-03-26 05:48] LABS: Basophils # 0.1 K/mcL (0.0-0.2); Basophils % 0.7 %; Hematocrit 36.5 % (35.3-44.9); Hemoglobin 12.3 g/dL (11.5-15.4); Immature Granulocytes % 5.7 % (0-4); Lymphocytes # 0.6 K/mcL (0.6-4.6); Lymphocytes % 7.4 %; Mean Corpuscular HGB Conc 33.7 g/dL (31.6-35.5); Mean Corpuscular Hemoglobin 32.8 pg (28.0-33.3); Mean Corpuscular Volume 97.3 fL (83.0-100.0); Mean Platelet Volume 9.7 fL (9.4-12.4); Monocytes # 0.1 K/mcL (0.0-1.3); Monocytes % 1.8 %; Neutrophils # 6.5 K/mcL (1.6-8.9); Nucleated Red Blood Cells 0.3 /100 WBC (0); Platelet Count 356 K/mcL (140-400); Red Blood Count 3.75 M/mcL (3.82-4.97); Red Cell Distribution Width 14.2 % (11.5-14.5); Segmented Neutrophils % 84.4 %
[2018-03-26 05:55] LABS: BUN/Creatinine Ratio 37 (6-26); Blood Urea Nitrogen 21 mg/dL (8-23); Calcium 9.2 mg/dL (8.6-10.3); Carbon Dioxide 31 mEq/L (23-29); Chloride 103 mEq/L (98-107); Glucose 157 mg/dL (70-105); Osmolality,Calculated 296 (280-300); Sodium 140 mEq/L (136-145); eGFR For African Americans > 60 (> 60); eGFR For Non-African Americans > 60 (> 60)
[2018-03-26] MEDS: *HR* Heparin 5,000 UNIT/ML VIAL SQ SCH ×3 (06:18→23:04)
[2018-03-26] MEDS: Ampicillin/Sulbactam 3,000 MG in 0.9 % Sodium Chloride Mini Bag 100 ML IVPB SCH ×3 (06:18→19:16)
[2018-03-26 06:21] LABS: Platelet Estimate Normal (Normal)
[2018-03-26] MEDS: Ascorbic Acid 500 MG TABLET PO SCH (09:53)
[2018-03-26] MEDS: methylPREDNISolone 125 MG/2 ML VIAL IVP SCH ×3 (09:53→23:03)
[2018-03-26] MEDS: Aspirin Enteric Coated 81 MG Tablet PO SCH (09:53)
[2018-03-26] MEDS: Loratadine 10 MG TABLET PO SCH (09:53)
[2018-03-26] MEDS: Azithromycin 500 MG in D5% in Water 250 ML IVPB SCH (09:53)
[2018-03-26] MEDS ORDERED: Nicotine 14 MG PATCH.TD24 TD SCH (10:15)
--- NOTE | 2018-03-26 14:15 | Internal Med Progress Note ---
<George Cole - Last Filed: 03/26/18 14:45> Date of Encounter: 03/26/18 Time of Encounter: 09:00 - Assessment and plan (1) Acute exacerbation of chronic obstructive pulmonary disease (COPD) Current Visit: Yes Status: Acute Assessment and plan: increased cough, sputum production, and O2 requirement Patient is feeling significantly worse than previous We will continue Unasyn, restart azithromycin Transitioned back to IV steroids Update 03/26 Improved with IV Steroids + azithromycin Continue these medications tonight BiPAP Qualification overnight Plan to Discharge tomorrow, however patient is at high risk for readmission due to severity of respiratory status as well as poor compliance secondary to financial problems. (2) Acute and chronic respiratory failure with hypoxia Current Visit: Yes Status: Chronic Assessment and plan: 2nd to pna and copd exacerbation continue supplemental O2 duonebs, home meds (3) Aspiration pneumonia Current Visit: Yes Status: Suspected Assessment and plan: CTA: negative for PE, Left lung pna. urine strep and legionella negative blood cultures negative thus far Concern for worsening symptoms Continue unasyn Day 5 Azithromycin Day 4 total, however interrupted Qualifiers: Aspiration pneumonia type: unspecified Laterality: left Lung location: unspecified part of lung Qualified Code(s): J69.0 - Pneumonitis due to inhalation of food and vomit (4) Hypokalemia Current Visit: Yes Status: Resolved Assessment and plan: replacing (5) DVT prophylaxis Current Visit: Yes Status: Acute Assessment and plan: Heparin subcutaneous (6) Tobacco abuse Current Visit: Yes Status: Chronic Assessment and plan: Nicotine patches as needed - Time Spent With Patient Total time spent is greater than 50% in coordination of care (as documented) at patient's floor/unit and/or counseling patient: - Subjective Interval history: The patient is seen and examined at bedside. She is feeling better today than yesterday, however she still has bouts of anxiety which result in dyspnea and mild distress. She has found BiPAP helpful in these events. She otherwise is concerned that she may not be ready to be discharged today, and feels as though she may need one more night. - Constitutional Vitals: Temp Pulse Resp BP Pulse Ox 97.7 F 102 18 138/87 93 03/26/18 11:03 03/26/18 11:03 03/26/18 11:03 03/26/18 11:03 03/26/18 11:03 Exam: Gen: Vitals noted. No acute distress HEENT: Normocephalic, atraumatic Neck: Supple. No adenopathy. Cardiac: RRR, no murmur, +S1/S2 Pulmonary: Mild wheezes throughout with b/l diminished sounds Abdomen: soft, nontender, no guarding Back: Nontender throughout. MSK: ROM intact, no joint swelling noted Extremities: no BLE edema, nontender calf, no cyanosis or clubbing Neuro: moves all extremities, no focal deficits Psych: Highly prone to anxiety while discussing health Internal Medicine: Result - Labs CBC & Chem 7: 03/26/18 05:10 03/26/18 05:10 Labs: Short CBC 03/26/18 Range/Units 05:10 WBC 7.7 (4.3-11.1) K/mcL Hgb 12.3 (11.5-15.4) g/dL Hct 36.5 (35.3-44.9) % Plt Count 356 (140-400) K/mcL Neutrophils # 6.5 (1.6-8.9) K/mcL BMP 03/26/18 05:10 Sodium 140 Potassium 4.0 Chloride 103 Carbon Dioxide 31 H BUN 21 Creatinine 0.57 L Glucose 157 H Calcium 9.2 - VTE Documentation of Mechanical Device: Graduated compression elastic hosiery Consult Discharge Plan - Plan Instructions: Acute Respiratory Distress Syndrome (DC), Using Oxygen at Home ( DC), Chronic Obstructive Pulmonary Disease (DC), Cigarette Smoking and Your Health, [employer] (GEN) Referrals: Radha Sue CNP [Primary Care Provider] - 04/01/18 1:00 pm <Jcarlos Bowie - Last Filed: 03/26/18 15:10> Date of Encounter: 03/26/18 - Assessment and plan (1) Acute exacerbation of chronic obstructive pulmonary disease (COPD) Current Visit: Yes Status: Acute (2) Acute and chronic respiratory failure with hypoxia Current Visit: Yes Status: Chronic (3) Aspiration pneumonia Current Visit: Yes Status: Suspected Qualifiers: Aspiration pneumonia type: unspecified Laterality: left Lung location: unspecified part of lung Qualified Code(s): J69.0 - Pneumonitis due to inhalation of food and vomit (4) DVT prophylaxis Current Visit: Yes Status: Acute (5) Hypokalemia Current Visit: Yes Status: Resolved (6) Tobacco abuse Current Visit: Yes Status: Chronic - Time Spent With Patient Total time spent is greater than 50% in coordination of care (as documented) at patient's floor/unit and/or counseling patient: - Constitutional Vitals: Temp Pulse Resp BP Pulse Ox 97.7 F 102 18 138/87 93 03/26/18 11:03 03/26/18 11:03 03/26/18 11:03 03/26/18 11:03 03/26/18 11:03 Internal Medicine: Result - Labs CBC & Chem 7: 03/26/18 05:10 03/26/18 05:10 Labs: Short CBC 03/26/18 Range/Units 05:10 WBC 7.7 (4.3-11.1) K/mcL Hgb 12.3 (11.5-15.4) g/dL Hct 36.5 (35.3-44.9) % Plt Count 356 (140-400) K/mcL Neutrophils # 6.5 (1.6-8.9) K/mcL BMP 03/26/18 05:10 Sodium 140 Potassium 4.0 Chloride 103 Carbon Dioxide 31 H BUN 21 Creatinine 0.57 L Glucose 157 H Calcium 9.2 - Attending Attestation Acute on chronic hypoxic respiratory failure secondary to acute COPD exacerbation due to aspiration pneumonia present upon admission Continue Unasyn D4, stop azithromycin day #4 Solu-Medrol I examined this patient and my medical decision-making was reviewed with the Resident Physician. I agree with the documented findings, disposition and treatment plan as described except to the extent set forth below.
[2018-03-27] MEDS: Ampicillin/Sulbactam 3,000 MG in 0.9 % Sodium Chloride Mini Bag 100 ML IVPB SCH ×2 (01:18→05:57)
[2018-03-27] MEDS: Ipratropium/Albuterol Neb 3 ML IH SCH ×3 (03:19→16:01)
[2018-03-27] MEDS: *HR* Heparin 5,000 UNIT/ML VIAL SQ SCH (05:57)
--- NOTE | 2018-03-27 10:05 | Discharge Summary ---
- NOTES TO OUTPATIENT PROVIDER Notes to Outpatient Provider: Follow-up with primary care physician within the next 7 days. Complete 3 more days of amoxicillin, use DuoNeb nebs as needed, follow-up with pulmonary services within the next 4 weeks for pulmonary function tests. Quit smoking. Prednisone taper as follows:60 mg daily for 4 days, 50 mg for 4 days, 40 mg for 4 days, 30 mg for 4 days, 20 mg for 4 days, 10 mg for 4 days Date of Encounter: 03/27/18 Time of Encounter: 10:03 - Discharge Diagnosis (1) Acute exacerbation of chronic obstructive pulmonary disease (COPD) Priority: Primary Status: Acute Assessment and Plan: Acute on chronic hypoxic respiratory failure secondary to acute COPD exacerbation due to aspiration pneumonia present upon admission (2) Acute and chronic respiratory failure with hypoxia Priority: Primary Status: Chronic (3) Aspiration pneumonia Priority: Primary Status: Suspected Qualifiers: Aspiration pneumonia type: unspecified Laterality: left Lung location: unspecified part of lung Qualified Code(s): J69.0 - Pneumonitis due to inhalation of food and vomit (4) Hypokalemia Priority: Secondary Status: Resolved (5) Tobacco abuse Priority: Secondary Status: Chronic Hospital course: Ms. Nichole is a 72 year old female with history of tobacco use, anxiety, iron deficiency anemia, COPD oxygen dependent and diastolic CHF who was admitted for hypoxic respiratory failure secondary to exacerbation of COPD and likely aspiration pneumonia. She had acute dyspnea prior to presentation that started the day of admission, and became worse over time. She'd initially presented to an urgent care, where she was given antibiotics and steroids however she decided only to take the antibiotic and not the steroid. As she continued to get worse, she determined that she would need to go to the hospital. In the ED she was found to be hypoxic and in respiratory distress, and she was also found to be tachycardic. At that time she was started on steroids, antibiotics and breathing treatments, and she had a CTA of the chest which was negative for PE but did demonstrate infiltrates consistent with aspiration pneumonia. She was maintained on antibiotics and steroids and continued to improve. She is now stable for discharge to home with oral antibiotic and steroid course. Improved with IV Steroids + azithromycin, was transitioned to oral steroids was started feeling worse for which she had to be started restarted on Solu-Medrol. Received 4 days of azithromycin and 5 days of Unasyn. Was given the option to stay another day but prefers to be discharged at this time Time spent discussing smoking cessation with patient: 3 to 10 minutes - Time Spent with Patient Total time spent providing and/or coordinating discharge services: Greater than 30 minutes (40 min) - Discharge Medications Prescriptions: Ipratropium/Albuterol Neb [Duoneb] 3 ml IH [id number] PRN #40 inhsol PRN Reason: Shortness Of Breath Amoxicillin/Clavulanate [Augmentin] 875 mg PO BIDWM #6 tablet Benzonatate [Tessalon] 100 mg PO TID PRN #30 capsule PRN Reason: cough hydrOXYzine pamoate [HydrOXYzine Pamoate] 25 mg PO TID PRN #20 capsule PRN Reason: Anxiety predniSONE [PredniSONE] 10 mg PO DAILY 24 Days tablet Home Medications: Acetaminophen [Extra Strength Non-Aspirin] 500 mg PO DAILY 03/23/18 [History] Albuterol Sulfate [Ventolin Hfa] 2 puff IH Q6H PRN 03/23/18 [History] Aspirin [Adult Aspirin] 81 mg PO DAILY 03/23/18 [History] Mv,Fe,Min/Lutein [A Thru Z [employer] Tablet] 1 tab PO DAILY 03/23/18 [ History] Amoxicillin/Clavulanate [Augmentin] 875 mg PO BIDWM #6 tablet 03/27/18 [Rx] Benzonatate [Tessalon] 100 mg PO TID PRN #30 capsule 03/27/18 [Rx] Ipratropium/Albuterol Neb [Duoneb] 3 ml IH [id number] PRN #40 inhsol 03/27/18 [Rx] hydrOXYzine pamoate [HydrOXYzine Pamoate] 25 mg PO TID PRN #20 capsule 03/27/18 [Rx] predniSONE [PredniSONE] 10 mg PO DAILY 24 Days tablet 03/27/18 [Rx] Allergies/Adverse Reactions: 3 Allergy/AdvReac Type Severity Reaction Status Date / Time ampicillin [From Unasyn] Allergy Redness of Verified 03/27/18 01:24 Skin ibuprofen Allergy Nausea Verified 03/23/18 01:26 sulbactam [From Unasyn] Allergy Redness of Verified 03/27/18 01:24 Skin Date of admission: 03/23/18 04:51 Primary care physician: Radha Sue CNP - Constitutional Vitals: Temp Pulse Resp BP Pulse Ox 98.0 F 89 17 114/58 97 03/27/18 07:04 03/27/18 07:04 03/27/18 07:04 03/27/18 07:04 03/27/18 07:04 General appearance: Present: A&O X 3 - Head Head exam: Present: atraumatic, normocephalic - Eye Eye exam: Present: PERRL, conjuntiva pink, sclera anicteric Pupils: Present: PERRL - Neck Neck exam general surgery: Present: supple, trachea midline. Absent: lymphadenopathy - Respiratory Respiratory exam: Present: decreased breath sounds, CTAB. Absent: accessory muscle use, rales, rhonchi, wheezes - Cardiovascular Cardiovascular exam: Present: RRR, +S1, +S2. Absent: diastolic murmur, gallop, rubs, systolic murmur - GI/Abdominal GI/Abdominal exam: Present: normal bowel sounds, soft, no peritoneal signs. Absent: distended, tenderness - Extremities Exam Extremities exam: Present: warm, radial pulses palpable and symmetrical. Absent : calf tenderness, cyanotic, pedal edema - Neurological Exam Neurological exam: Present: CN II-XII intact, oriented X3, no focal deficits. Absent: pronater drift, facial droop, speech deficit - Skin Skin exam: Present: dry, intact - Patient Status Disposition: Home, Self-Care Condition: Good Overall status at discharge: patient is progressing back to baseline - Discharge Instructions Instructions: Acute Respiratory Distress Syndrome (DC), Using Oxygen at Home ( DC), Chronic Obstructive Pulmonary Disease (DC), Cigarette Smoking and Your Health, [place] (GEN) Follow Up With: Radha Sue CNP [Primary Care Provider] - 04/01/18 1:00 pm - Diet and Activity Activity: increase activity as tolerated, wear oxygen at all times Diet: low fat, low cholesterol - VTE Documentation of Mechanical Device: Graduated compression elastic hosiery
[2018-03-27] MEDS: Ascorbic Acid 500 MG TABLET PO SCH (12:50)
[2018-03-27] MEDS: Loratadine 10 MG TABLET PO SCH (12:50)
[2018-03-27] MEDS: Aspirin Enteric Coated 81 MG Tablet PO SCH (12:51)
[2018-03-27 14:54] VITALS: BP 118/69
== END 2018-03-27 16:50 | disposition home or self-care (01) | DRG 177 ==
LOC: 2NENU 00:32 → EMEROO 00:32 → SUATTDRO 04:51 → 2NENU 05:33
PROVIDERS: ADMIT Internal Medicine; ATTEND Internal Medicine

== ENCOUNTER 2021-08-21 18:43 | Inpatient (IN) ==
[2021-08-21] MEDS ORDERED: Isovue-370 500 ML BOTTLE IVP ONE (19:03)
[2021-08-21 19:34] LABS: Basophils # 0.1 K/mcL (0.0-0.2); Basophils % 0.4 %; Eosinophils % 0.1 %; Immature Granulocytes % 0.9 % (0-4); Lymphocytes # 0.5 K/mcL (0.6-4.6); Mean Corpuscular Hemoglobin 29.3 pg (28.0-33.3); Mean Corpuscular Volume 97.6 fL (83.0-100.0); Mean Platelet Volume 9.8 fL (9.4-12.4); Monocytes # 1.2 K/mcL (0.0-1.3); Monocytes % 7.1 %; Neutrophils # 14.7 K/mcL (1.6-8.9); Platelet Count 303 K/mcL (140-400); Red Cell Distribution Width 13.6 % (11.5-14.5); Segmented Neutrophils % 88.5 %; White Blood Count 16.6 K/mcL (4.3-11.1)
[2021-08-21 19:42] LABS: INR 1.1; Prothrombin Time 12.8 Seconds (9.4-12.1)
[2021-08-21 19:45] LABS: Activated Partial Thrombo Time 24.5 Seconds (26.0-36.0)
[2021-08-21 19:57] LABS: Alanine Aminotransferase 11 Units/L (7-52); Albumin 3.5 g/dL (3.5-5.7); Aspartate Amino Transferase 22 Units/L (13-39); BUN/Creatinine Ratio 16 (6-26); Bilirubin,Direct 0.1 mg/dL (0.0-0.2); Bilirubin,Indirect 0.3 mg/dL (0.0-1.0); Bilirubin,Total 0.4 mg/dL (0.3-1.0); Blood Urea Nitrogen 15 mg/dL (8-23); Carbon Dioxide 38 mEq/L (23-29); Chloride 98 mEq/L (98-107); Globulin 3.6 g/dL (2.4-3.5); Glucose 170 mg/dL (70-105); Lipase 18 Units/L (11-82); Osmolality,Calculated 295 (280-300); Potassium 3.3 mEq/L (3.5-5.1); Sodium 140 mEq/L (136-145); Total Protein 7.1 g/dL (6.4-8.9); Troponin I 0.03 ng/mL (< 0.04); eGFR For African Americans > 60 (> 60); eGFR For Non-African Americans > 60 (> 60)
[2021-08-21 20:31] LABS: Influenza A PCR Negative (Negative); Influenza B PCR Negative (Negative); Resp. Syncytial Virus PCR Negative (Negative)
[2021-08-21 20:40] LABS: SARS-CoV-2 by PCR (In House) Negative (Negative)
[2021-08-21 20:42] LABS: Alkaline Phosphatase < 5 Units/L (34-104)
[2021-08-21] MEDS ORDERED: cefTRIAXone 2,000 MG in Water for inj. (sterile) 20 ML IVP ONE (22:15)
[2021-08-21] MEDS ORDERED: Acetaminophen 325 MG TABLET PO PRN (23:45)
[2021-08-21] MEDS ORDERED: Naloxone 0.4 MG/ML INJ IVP PRN (23:45)
[2021-08-21] MEDS ORDERED: Ondansetron 4 MG/2 ML VIAL IVP PRN (23:45)
[2021-08-22 06:12] LABS: Basophils # 0.1 K/mcL (0.0-0.2); Basophils % 0.6 %; Eosinophils % 0.3 %; Hematocrit 36.2 % (35.3-44.9); Hemoglobin 11.3 g/dL (11.5-15.4); Immature Granulocytes % 0.6 % (0-4); Lymphocytes # 1.2 K/mcL (0.6-4.6); Lymphocytes % 9.8 %; Mean Corpuscular HGB Conc 31.2 g/dL (31.6-35.5); Mean Corpuscular Hemoglobin 29.9 pg (28.0-33.3); Mean Corpuscular Volume 95.8 fL (83.0-100.0); Mean Platelet Volume 10.1 fL (9.4-12.4); Monocytes # 1.5 K/mcL (0.0-1.3); Monocytes % 12.2 %; Neutrophils # 9.6 K/mcL (1.6-8.9); Platelet Count 273 K/mcL (140-400); Red Blood Count 3.78 M/mcL (3.82-4.97); Red Cell Distribution Width 13.7 % (11.5-14.5); Segmented Neutrophils % 76.5 %; White Blood Count 12.6 K/mcL (4.3-11.1)
[2021-08-22 06:36] LABS: BUN/Creatinine Ratio 16 (6-26); Blood Urea Nitrogen 13 mg/dL (8-23); Calcium 9.5 mg/dL (8.6-10.3); Carbon Dioxide 37 mEq/L (23-29); Chloride 100 mEq/L (98-107); Glucose 124 mg/dL (70-105); Osmolality,Calculated 296 (280-300); Phosphorous 2.6 mg/dL (2.7-4.5); Potassium 3.4 mEq/L (3.5-5.1); Sodium 142 mEq/L (136-145); Troponin I 0.04 ng/mL (< 0.04); eGFR For African Americans > 60 (> 60); eGFR For Non-African Americans > 60 (> 60)
[2021-08-22] MEDS ORDERED: Perflutren Lipid Microsphere 1.3 ML in 0.9 % Sodium Chloride 8.7 ML IVP PRN ×2 (06:57→10:30)
[2021-08-22] MEDS ORDERED: Potassium Chloride 40 MEQ, Lidocaine 1% 2 ML in 0.9 % Sodium Chloride 500 ML IVPB ONE (07:03)
[2021-08-22] MEDS ORDERED: Albuterol 2.5 MG/3 ML NEBULIZER IH PRN (07:06)
[2021-08-22] MEDS: Aspirin 81 MG TAB.CHEW PO SCH (07:56)
[2021-08-22] MEDS: Furosemide 20 MG/2 ML VIAL IVP ONE ×2 (10:55→12:52)
[2021-08-22] MEDS: Azithromycin 500 MG in 0.9 % Sodium Chloride 250 ML IVPB SCH (11:29)
[2021-08-22] MEDS: cefTRIAXone 1,000 MG in 0.9 % Sodium Chloride Mini Bag 100 ML IVPB SCH (12:53)
[2021-08-22] MEDS ORDERED: Gadolinium Contrast Agent (WT Based) IV PRN (13:20)
[2021-08-22] MEDS: carvediloL 6.25 MG TABLET PO SCH (16:27)
[2021-08-22] MEDS ORDERED: Ipratropium/Albuterol Neb 3 ML IH PRN (17:11)
[2021-08-22] MEDS ORDERED: *HR* Heparin 5,000 UNIT/ML VIAL SQ SCH (18:00)
[2021-08-22] MEDS: Budesonide/Formoterol 80/4.5 1 PUFF INH IH SCH (21:38)
[2021-08-22] MEDS: Melatonin 3 MG TABLET PO PRN (22:22)
[2021-08-23] MEDS: *HR* Enoxaparin 40 MG/0.4 ML SYRINGE SQ SCH (05:53)
[2021-08-23] MEDS ORDERED: Regadenoson 0.4 MG/5 ML SYRINGE IVP ONE (05:57)
[2021-08-23] MEDS: Budesonide/Formoterol 80/4.5 1 PUFF INH IH SCH ×2 (07:36→22:26)
[2021-08-23] MEDS: Tiotropium 10 INH DOSE IH SCH (07:37)
[2021-08-23 07:54] LABS: Hematocrit 41.8 % (35.3-44.9); Hemoglobin 12.4 g/dL (11.5-15.4); Mean Corpuscular HGB Conc 29.7 g/dL (31.6-35.5); Mean Corpuscular Hemoglobin 29.2 pg (28.0-33.3); Mean Corpuscular Volume 98.4 fL (83.0-100.0); Mean Platelet Volume 10.3 fL (9.4-12.4); Platelet Count 268 K/mcL (140-400); Red Blood Count 4.25 M/mcL (3.82-4.97); Red Cell Distribution Width 13.7 % (11.5-14.5); White Blood Count 13.6 K/mcL (4.3-11.1)
[2021-08-23 07:56] LABS: BUN/Creatinine Ratio 17 (6-26); Blood Urea Nitrogen 15 mg/dL (8-23); Calcium 9.8 mg/dL (8.6-10.3); Carbon Dioxide 36 mEq/L (23-29); Chloride 101 mEq/L (98-107); Glucose 142 mg/dL (70-105); Osmolality,Calculated 297 (280-300); Sodium 142 mEq/L (136-145); eGFR For African Americans > 60 (> 60); eGFR For Non-African Americans > 60 (> 60)
[2021-08-23] MEDS: carvediloL 6.25 MG TABLET PO SCH ×2 (08:41→18:00)
[2021-08-23] MEDS: Aspirin 81 MG TAB.CHEW PO SCH (08:41)
[2021-08-23] MEDS: cefTRIAXone 1,000 MG in 0.9 % Sodium Chloride Mini Bag 100 ML IVPB SCH (08:41)
[2021-08-23] MEDS: Azithromycin 500 MG in 0.9 % Sodium Chloride 250 ML IVPB SCH (11:20)
[2021-08-23] MEDS: Melatonin 3 MG TABLET PO PRN (21:24)
[2021-08-24] MEDS: *HR* Enoxaparin 40 MG/0.4 ML SYRINGE SQ SCH (05:43)
[2021-08-24] MEDS ORDERED: Regadenoson 0.4 MG/5 ML SYRINGE IVP ONE (06:12)
[2021-08-24 07:35] LABS: Hematocrit 39.1 % (35.3-44.9); Hemoglobin 11.6 g/dL (11.5-15.4); Mean Corpuscular HGB Conc 29.7 g/dL (31.6-35.5); Mean Corpuscular Hemoglobin 29.7 pg (28.0-33.3); Mean Corpuscular Volume 100.3 fL (83.0-100.0); Mean Platelet Volume 10.4 fL (9.4-12.4); Platelet Count 242 K/mcL (140-400); Red Cell Distribution Width 13.6 % (11.5-14.5); White Blood Count 12.1 K/mcL (4.3-11.1)
[2021-08-24 07:57] LABS: BUN/Creatinine Ratio 23 (6-26); Blood Urea Nitrogen 20 mg/dL (8-23); Calcium 9.6 mg/dL (8.6-10.3); Carbon Dioxide 37 mEq/L (23-29); Chloride 102 mEq/L (98-107); Glucose 112 mg/dL (70-105); Osmolality,Calculated 297 (280-300); Sodium 142 mEq/L (136-145); eGFR For African Americans > 60 (> 60); eGFR For Non-African Americans > 60 (> 60)
[2021-08-24] MEDS: cefTRIAXone 1,000 MG in 0.9 % Sodium Chloride Mini Bag 100 ML IVPB SCH (08:12)
[2021-08-24] MEDS: carvediloL 6.25 MG TABLET PO SCH ×2 (08:13→16:24)
[2021-08-24] MEDS: Aspirin 81 MG TAB.CHEW PO SCH (08:13)
[2021-08-24] MEDS: Tiotropium 10 INH DOSE IH SCH (11:06)
[2021-08-24] MEDS: Budesonide/Formoterol 80/4.5 1 PUFF INH IH SCH ×2 (11:06→21:03)
[2021-08-24] MEDS: Azithromycin 500 MG in 0.9 % Sodium Chloride 250 ML IVPB SCH (13:07)
[2021-08-24] MEDS: Haloperidol Lactate 5 MG/ML VIAL IVP PRN (17:25)
[2021-08-24] MEDS: Melatonin 3 MG TABLET PO PRN (20:45)
[2021-08-25] MEDS: Haloperidol Lactate 5 MG/ML VIAL IVP PRN (01:45)
[2021-08-25 03:32] VITALS: TEMP 98.8
[2021-08-25 07:06] LABS: Hematocrit 35.5 % (35.3-44.9); Hemoglobin 10.6 g/dL (11.5-15.4); Mean Corpuscular HGB Conc 29.9 g/dL (31.6-35.5); Mean Corpuscular Hemoglobin 29.4 pg (28.0-33.3); Mean Corpuscular Volume 98.3 fL (83.0-100.0); Platelet Count 256 K/mcL (140-400); Red Blood Count 3.61 M/mcL (3.82-4.97); Red Cell Distribution Width 13.2 % (11.5-14.5); White Blood Count 11.5 K/mcL (4.3-11.1)
[2021-08-25] MEDS: *HR* Enoxaparin 40 MG/0.4 ML SYRINGE SQ SCH (07:51)
[2021-08-25] MEDS: cefTRIAXone 1,000 MG in 0.9 % Sodium Chloride Mini Bag 100 ML IVPB SCH (07:51)
[2021-08-25] MEDS: Aspirin 81 MG TAB.CHEW PO SCH (07:53)
[2021-08-25] MEDS: carvediloL 6.25 MG TABLET PO SCH (07:53)
[2021-08-25 08:41] LABS: BUN/Creatinine Ratio 23 (6-26); Blood Urea Nitrogen 22 mg/dL (8-23); Calcium 9.3 mg/dL (8.6-10.3); Carbon Dioxide 36 mEq/L (23-29); Chloride 100 mEq/L (98-107); Glucose 131 mg/dL (70-105); Osmolality,Calculated 293 (280-300); Potassium 3.9 mEq/L (3.5-5.1); Sodium 139 mEq/L (136-145); eGFR For African Americans > 60 (> 60); eGFR For Non-African Americans 57 (> 60)
[2021-08-25] MEDS: Budesonide/Formoterol 80/4.5 1 PUFF INH IH SCH (10:30)
[2021-08-25] MEDS: Tiotropium 10 INH DOSE IH SCH (10:30)
[2021-08-25 10:45] LABS: Adenovirus Not Detected (Not Detect); Coronavirus 229E Not Detected (Not Detect); Coronavirus HKU1 Not Detected (Not Detect); Coronavirus NL63 Not Detected (Not Detect); Coronavirus OC43 Not Detected (Not Detect); Human Metapneumovirus Not Detected (Not Detect); Human Rhinovirus/Enterovirus Not Detected (Not Detect); Influenza A Subtype 2009 H1 Not Detected (Not Detect); Influenza B Not Detected (Not Detect); Parainfluenza Virus 1 Not Detected (Not Detect); Parainfluenza Virus 2 Not Detected (Not Detect); Parainfluenza Virus 3 Not Detected (Not Detect); Parainfluenza Virus 4 Not Detected (Not Detect); SARS-CoV-2 Not Detected (Not Detect)
[2021-08-25 10:46] LABS: Bordetella Pertussis Not Detected (Not Detect); Chlamydophila pneumoniae Not Detected (Not Detect); Mycoplasma pneumoniae Not Detected (Not Detect); Respiratory Syncytial Virus Not Detected (Not Detect)
[2021-08-25] MEDS ORDERED: Azithromycin 250 MG TABLET PO ONE (10:54)
[2021-08-25] MEDS: Azithromycin 500 MG in 0.9 % Sodium Chloride 250 ML IVPB SCH (10:56)
[2021-08-25 11:52] VITALS: BP 95/63; PULSE 84; O2SAT 98
[2021-08-25] MEDS ORDERED: Moderna Covid-19 Vaccine 100MCG/0.5mL IM ONE (13:40)
== END 2021-08-25 17:00 | DRG 191 ==
LOC: EMEROOARM 18:43 → 3NENU 18:43
PROVIDERS: ADMIT Family Medicine; ATTEND Family Medicine